=== PATIENT | female | born 1970 | race Two or more races ===

== ENCOUNTER 2018-01-27 08:01 | Outpatient (CLI) | payer OTHER | END 2018-01-27 08:23 | disposition home or self-care (01) | LOC: SONOGRAMA 08:01 → MAMO-SONO 08:15 → SONOGRAMA 08:23 | DX: M25.542 Pain in joints of left hand (principal); M25.541 Pain in joints of right hand; M25.532 Pain in left wrist; M25.531 Pain in right wrist ==